=== PATIENT | female | born 1955 | race Caucasian/White ===

== ENCOUNTER → 2016-12-07 | Outpatient (CLI) | payer MEDICARE, BC ==
[~2016-12-07] MED LIST: CENTRUM PO; CETIRIZINE HCL10 MG PO; CITALOPRAM HBR40 MG PO; DIAZEPAM10 MG PO; LEVSIN PO; OMEGA 3-6-9 CO400 MG PO; SINGULAIR PO; SUCRALFATE PO; SYNTHROID0.05 MG PO; VIT D2
--- NOTE | ~2016-12-07 | MR103 ---
STS. [facility] A Service of [facility] RADIOLOGY TEXT RESULTS PATIENT: HAL LOPEZ LOCATION: [facility] : [birth year] UNIT #: [id number] AGE: [address]: Evert Willingham MD SEX: F ORDER DR: [id number] [address] [address] [id number] O MR#: [id number] Acc #: [id number] NAME: HAL LOPEZ : 1955 SEX: F STUDY DATE/TIME: 12/07/2016 10:36 UNIT: [facility] ROOM: STUDY DESCRIPTION: MR Knee Wo Contrast Lt Attending Physician: Evert Willingham M.D. Referring Physician: Evert Willingham M.D. Ordering Physician: Evert Willingham M.D. Primary Care Physician: Evert Willingham M.D. MRI CENTER REPORT This report is preliminary unless electronic signature is present. EXAM MRI of the left knee 12/07/2016 COMPARISON Left tibia-fibula radiographs 11/30/2016. HISTORY Order states left knee pain. History sheet states no known injury and no knee surgery. Increasing left knee pain intermittently for 2 years with some swelling and some instability. Pain especially medially. No knee surgery. FINDINGS There is no effusion or popliteal cyst. There is trace fluid in the medial gastrocnemius - semimembranosus bursa. Patellofemoral arthrosis is present with mild joint space narrowing, generalized patellar cartilage attenuation including high-grade chondromalacia of the lateral patellar facet, and xjo-zv-wkfeguht grade femoral trochlear chondromalacia. Quadriceps and patellar tendons are intact. Cruciate ligaments are normal. The lateral meniscus, lateral collateral ligament complex, and popliteus tendon are intact. There is a subcentimeter focus of moderate to high-grade chondromalacia of the posterior weightbearing lateral tibial plateau. The medial meniscus demonstrates myxoid degeneration and equivocal small superior articular tear in the midbody segment. There is no sizeable tear or displaced meniscal fragment. There is a zone of moderate to high-grade chondromalacia of the periphery of the anterior medial tibial plateau with STS. [facility] A Service of [facility] & [facility] / [facility] RADIOLOGY TEXT RESULTS PATIENT: HAL LOPEZ LOCATION: [facility] : [birth year] UNIT #: [id number] AGE: [address]: Evert Willingham MD SEX: F ORDER DR: underlying marrow edema. There is high-grade chondromalacia of the posterior non-weightbearing medial femoral condyle. The MCL is intact. There is also weightbearing medial tibial wjd-ct-ayiscyya grade chondromalacia. There is no marrow lesion, fracture, or sizable intraarticular loose body. There is probably a migrated loose body down the popliteus sheath just medial to the proximal tibiofibular joint measuring 7 mm. IMPRESSION 1. 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 2. Small focus myxoid degeneration and/or tiny superior articular tear anterior body medial meniscus near a zone of prominent chondromalacia. No sizeable medial meniscal tear. 3. Cruciate ligaments and lateral meniscus are normal. 4. 7 mm calcified presumed migrated loose body down the popliteus sheath. No intraarticular loose bodies are noted. Dictated by... Elle Guillen M.D. THIS IS AN ELECTRONICALLY VERIFIED REPORT Elle Guillen M.D. at 12/08/2016 2:57 PM JANE/valery TD: 12/08/2016 12:51 JOB #: [id number] MRI CENTER REPORT
== END | disposition home or self-care (01) ==
LOC: SMRI 10:11
DX: M25.562 Pain in left knee (principal); M94.262 Chondromalacia, left knee; M23.42 Loose body in knee, left knee
CPT/HCPCS: 73721

== ENCOUNTER → 2017-01-09 | Outpatient (CLI) | payer MEDICARE, BC ==
--- NOTE | ~2017-01-09 | TH ---
Unit #: [id number] #: [id number] Patient: HAL LOPEZ [id number] [address] [address] [id number] O MR#: [id number] NAME: HAL LOPEZ : 1955 SEX: F STUDY DATE/TIME: 01/09/2017 UNIT: [facility] ROOM: STUDY DESCRIPTION: Cardiolite imaging Attending Physician: Wild Lagos M.D. Referring Physician: Wild Lagos M.D. Primary Care Physician: Evert Willingham M.D. CARDIOLOGY REPORT EXAM Cardiolite imaging. PROCEDURE Using technetium 99m labeled Cardiolite, rest and stress SPECT images were obtained. Multiple SPECT images were obtained in various views, including horizontal and vertical long axis and short axis views of the left ventricle. Images were obtained by gated SPECT method. The patient was administered 11.32 mCi of Cardiolite at rest and 36.0 mCi of Cardiolite after Lexiscan infusion was completed. On the stress images there is normal perfusion noted. The rest images show normal perfusion. Comparing rest and stress images there is no stress induced ischemia noted. The left ventricular ejection fraction is calculated to be 72%. There is no focal wall motion abnormality noted. CONCLUSION 1. No stress induced ischemia noted. 2. The left ventricular ejection fraction is calculated to be 72%. 3. There is no focal wall motion abnormality seen. 4. Normal Lexiscan Cardiolite stress test. Dictated by... Bro Gonzalez TD: 01/09/2017 11:06 JOB #: [id number] CC: Wild Lagos M.D. CARDIOLOGY REPORT Page 1 of 1 X Eliana Franklin MD <ELECTRONICALLY SIGNED> 04/21/17 1429 CARDIOLOGY REPORT
--- NOTE | ~2017-01-09 | ST ---
Unit #: [id number] #: [id number] Patient: HAL LOPEZ [id number] [facility]. [address] [address] [id number] O MR#: [id number] NAME: HAL LOPEZ. : 1955 SEX: F STUDY DATE/TIME: 01/09/2017 UNIT: [facility] ROOM: STUDY DESCRIPTION: Stress test Attending Physician: Wild Lagos M.D. Referring Physician: Wild Lagos M.D. Primary Care Physician: Evert Willingham M.D. CARDIOLOGY REPORT PROCEDURES PERFORMED Walking Lexiscan stress test. REASON FOR EXAM Chest pain. PROCEDURE Baseline EKG shows normal sinus rhythm, rate of 63 beats per minute, nonspecific T wave abnormality. Per protocol, 0.4 mg of Lexiscan was injected, followed by Cardiolite. During the testing and infusion, the patient experienced some shortness of breath but no other symptoms. She denied any complaints of chest pain. There were no ST or T wave changes suggestive of ischemia. There was an occasional isolated PVC. The test was ended secondary to protocol completion. IMPRESSION 1. Negative EKG portion of walking Lexiscan Cardiolite. 2. No ST-T wave changes suggestive of ischemia. 3. Mild shortness of breath during the infusion. Otherwise, no symptoms. Shortness of breath resolved in the recovery period. The patient denied any complaints of chest pain. 4. There was an isolated PVC noted. 5. Please correlate with nuclear imaging. Dictated by... Alexis TrinhPMelissaRMelissaNMelissa for Eliana Franklin M.D. LMW/db TD: 01/09/2017 09:31 JOB #: [id number] Unit #: [id number] #: [id number] Patient: HAL LOPEZ CARDIOLOGY REPORT Page 1 of 1 X Bernarda Shay APRN CARDIOLOGY REPORT
== END | disposition home or self-care (01) ==
LOC: CNUC 06:40
DX: R07.9 Chest pain, unspecified (principal); I49.3 Ventricular premature depolarization
CPT/HCPCS: 78452; 93017; A9500; J2785

== ENCOUNTER → 2017-05-28 | Outpatient (CLI) | payer MEDICARE, BC ==
--- NOTE | ~2017-05-28 | MR113 ---
STS. [facility] A Service of [facility] & [facility] RADIOLOGY TEXT RESULTS PATIENT: HAL LOPEZ LOCATION: [facility] : 51 UNIT #: [id number] AGE: [address]: Evert Willingham MD SEX: F ORDER DR: [id number] [address] [address] [id number] O MR#: [id number] Acc #: [id number] NAME: HAL LOPEZ : 1955 SEX: F STUDY DATE/TIME: 05/28/2017 9:18 UNIT: [facility] ROOM: STUDY DESCRIPTION: MR Lumbar Wo Contrast Attending Physician: Evert Willingham M.D. Referring Physician: Evert Willingham M.D. Ordering Physician: Evert Willingham M.D. Primary Care Physician: Evert Willingham M.D. MRI CENTER REPORT This report is preliminary unless electronic signature is present. EXAM Lumbar spine MRI no contrast, 05/28/2017 COMPARISON 01/24/2011 PROCEDURE Routine unenhanced lumbar spine MRI CLINICAL HISTORY 2-month history of chronic low back and bilateral leg pain and bilateral leg weakness. FINDINGS There is slight levoscoliosis but no say or retrolisthesis. Bone marrow signal is normal and the distal cord and conus are normal in position and appearance. The paraspinous tissues are unremarkable. At L1-2, there is a disc bulge and right paracentral/foraminal disc protrusion. This is new since the prior study. There is overall no canal stenosis, and there is minimal right and no left foraminal stenosis. At 2-3, there is disc desiccation and perhaps a slight bulge but no canal stenosis and no foraminal stenosis. At 3-4, there is a disc bulge and facet arthropathy and mild canal stenosis. There is mild right and borderline left foraminal narrowing unchanged since the prior study. At 4-5, there is disc desiccation but no canal stenosis. There is a small left foraminal disc protrusion with mild left foraminal stenosis and there is borderline right foraminal narrowing. This is new since the prior study. [facility] A Service of [facility] & [facility] RADIOLOGY TEXT RESULTS PATIENT: HAL LOPEZ LOCATION: [facility] : 51 UNIT #: [id number] AGE: [address]: Evert Willingham MD SEX: F ORDER DR: At 5-1, there is facet arthropathy but the disc is well preserved. There is no canal stenosis or foraminal stenosis. IMPRESSION Generally mild degenerative changes but there is new left foraminal narrowing at 4-5 when compared to the prior study and a new right paracentral and foraminal protrusion at L1-2 though without substantial canal or foraminal narrowing. No acute-appearing abnormality. Dictated by... Nitin Nowak M.D. THIS IS AN ELECTRONICALLY VERIFIED REPORT Nitin Nowak M.D. at 06/01/2017 4:07 PM MARCOS/kemar TD: 05/29/2017 11:41 JOB #: [id number] MRI CENTER REPORT Page 1 of 1
--- NOTE | ~2017-05-28 | MR32 ---
[facility]. [facility] A Service of [facility] RADIOLOGY TEXT RESULTS PATIENT: HAL LOPEZ LOCATION: [facility] : 51 UNIT #: [id number] AGE: [address]: Evert Willingham MD SEX: F ORDER DR: [id number] [address] [address] [id number] O MR#: [id number] Acc #: [id number] NAME: HAL LOPEZ : 1955 SEX: F STUDY DATE/TIME: 05/28/2017 8:52 UNIT: [facility] ROOM: STUDY DESCRIPTION: MR Cervical Wo Contrast Attending Physician: Evert Willingham M.D. Referring Physician: Evert Willingham M.D. Ordering Physician: Evert Willingham M.D. Primary Care Physician: Evert Willingham M.D. MRI CENTER REPORT This report is preliminary unless electronic signature is present. EXAM Cervical spine MRI without contrast, 05/28/2017. PROCEDURE Routine unenhanced cervical spine MRI. COMPARISON 05/08/16. CLINICAL HISTORY Neck pain and left arm radiculopathy for 6 months. FINDINGS Since the prior study there has been cervical fusion from C4 through C7. Allowing for metallic field distortion, bone marrow signal is normal. Cord signal is normal. The posterior fossa and its contents are normal. The paraspinous tissues are unremarkable. At 2-3, the canal and foramina are normal. At 3-4, there is no canal stenosis. The right foramen is normal, but there is moderate left foraminal narrowing. At 4-5, there is no canal stenosis. There may be minimal right and mild left bony foraminal narrowing. At 5-6, there is no canal stenosis, but there is mild left and borderline to mild right foraminal narrowing. At 6-7, there is no canal stenosis and minimal, if any, bilateral foraminal stenosis. At 7-1, the canal and right foramen are normal and there is minimal left STS. [facility] A Service of [facility] RADIOLOGY TEXT RESULTS PATIENT: HAL LOPEZ LOCATION: [facility] : 51 UNIT #: [id number] AGE: [address]: Evert Willingham MD SEX: F ORDER DR: foraminal narrowing. IMPRESSION Status post cervical fusion. There are some degenerative changes, but no cord compression or abnormal cord signal at any level. See above for level by level details regarding foraminal narrowing. Dictated by... Nitin Nowak M.D. THIS IS AN ELECTRONICALLY VERIFIED REPORT Nitin Nowak M.D. at 06/01/2017 4:08 PM TEV/pc TD: 05/29/2017 10:22 JOB #: [id number] MRI CENTER REPORT Page 1 of 1
== END | disposition home or self-care (01) ==
LOC: SMRI 08:22
DX: M48.02 Spinal stenosis, cervical region (principal); M48.06 Spinal stenosis, lumbar region; M47.892 Other spondylosis, cervical region; M99.81 Other biomechanical lesions of cervical region; M47.896 Other spondylosis, lumbar region; M99.83 Other biomechanical lesions of lumbar region; Z98.1 Arthrodesis status
CPT/HCPCS: 72141; 72148